=== PATIENT | male | born 2000 | race Caucasian/White ===

== ENCOUNTER 2022-05-24 18:31 | Emergency (ER) | payer OTHER ==
[~2022-05-24] VITALS: Ht 177.8 cm; Wt 59.0 kg
--- NOTE | 2022-05-24 18:50 | NUR ---
BIBS W/ C/O FELL OFF SCOOTER 3 DAYS AGO; PAIN/ABRASION TO LEFT SHOULDER AND LEFT LEG. TO ER BED 4.
[2022-05-24] MEDS ORDERED: KETOROLAC TROMETHAMINE INJ 30 MG/ML VIAL IM ONE (19:00)
[2022-05-24] MEDS ORDERED: KETOROLAC TROMETHAMINE INJ 30 MG/ML VIAL ONE (19:15)
--- NOTE | 2022-05-24 19:21 | NUR ---
REPORT GIVEN TO NURSE BEARD FOR LISA
--- NOTE | 2022-05-24 19:23 | NUR ---
SARAH SINGH AT PT'S BEDSIDE
[2022-05-24] MEDS ORDERED: KETOROLAC TROMETHAMINE INJ 60 MG/2 ML VIAL IM ONE (19:30)
--- NOTE | 2022-05-24 19:49 | NUR ---
[employer] WORKER AT PT'S BEDSIDE
[2022-05-24] MEDS ORDERED: BACITRACIN ZINC OINT PACKET 1 EA PACKET TP ONE (20:00)
--- NOTE | 2022-05-24 20:25 | NUR ---
[facility] in [facility] - 05/24/22 at 2046 by TUCKER COVID POSITIVE
--- NOTE | 2022-05-24 20:38 | NUR ---
WOUND CARE DONE TO PT'S LEFT ANKLE
[2022-05-24] MEDS ORDERED: MUPI15CR TP (20:54)
[2022-05-24] MEDS ORDERED: NAPR-1009 PO (20:54)
--- NOTE | 2022-05-24 20:57 | NUR ---
PT LEFT HOSPITAL WITHOUT DC PAPERWORK OR RECOMMENDED SPLIT. ATTEMPTED TO CALL PT; BUT NO PHONE NUMBER ON PT'S RECORD. ZARINA SINGH AWARE
[2022-05-24 21:06] VITALS: BP 109/67
== END 2022-05-24 21:07 | disposition home or self-care (01) ==
LOC: ER 18:37
DX: S93.492A Sprain of other ligament of left ankle, initial encounter (principal); S63.592A Other specified sprain of left wrist, initial encounter; S70.12XA Contusion of left thigh, initial encounter; S70.02XA Contusion of left hip, initial encounter; M25.512 Pain in left shoulder; Z60.2 Problems related to living alone; V29.69XA Unspecified motorcycle rider injured in collision with other motor vehicles in traffic accident, initial encounter; Y93.89 Activity, other specified; Y92.413 State road as the place of occurrence of the external cause; Y99.8 Other external cause status
CPT/HCPCS: 99284; 29125; 72170; 73610; 73080; 73552; 73030; 73590; 73110; 96372; J1885; A6403